=== PATIENT | male | born 1955 | race African-American/Black ===

== ENCOUNTER 2017-03-08 08:56 | Emergency (ER) | payer MEDICARE, MEDICAID ==
[~2017-03-08] VITALS: Ht 177.8 cm; Wt 120.0 kg
[~2017-03-08 08:56] MED LIST: ATOR10TA69 PO; DIGO125T82 PO; DILACOR XR PO; HYDR-523 PO; HYDR10SY11 PO; HYDR8TAB2 PO; METH-375 PO; MONT10TA21 PO; OMEP20TA15 PO; ONDA4SOL2 PO; QVAR INH; SEVE800T8 PO; TIOT18CA3 IH; TRAZ-129 PO; WARF5TAB76 PO
[2017-03-08 12:15] LABS: BASOPHILS % 0.4 % (0.0-2.0); EOSINOPHILS % 1.4 % (0.0-5.0); HEMATOCRIT. 35.2 % (42.0-52.0); HEMOGLOBIN. 11.4 g/dL (14.0-18.0); LYMPHOCYTES % 14.9 % (20.0-50.0); MEAN CORPUSCULAR HEMOGLOBIN 27.9 pg (28.0-32.0); MEAN CORPUSCULAR VOLUME 86.5 fL (80.0-94.0); MONOCYTES % 7.8 % (2.0-8.0); NEUTROPHILS % 75.5 % (40.0-76.0); PLATELET 206 x1000/uL (130-400); RED BLOOD CELL COUNT 4.07 mill/uL (4.7-6.1); RED CELL DISTRIBUTION WIDTH 18.1 % (11.6-14.6)
[2017-03-08 12:30] LABS: CHLORIDE 96 mEq/L (98-107)
[2017-03-08 19:40] VITALS: BP 123/65
== END 2017-03-08 21:09 | disposition home or self-care (01) ==
LOC: ER 08:56
DX: R55 Syncope and collapse (principal); I10 Essential (primary) hypertension; E11.9 Type 2 diabetes mellitus without complications; Z79.01 Long term (current) use of anticoagulants; Z88.0 Allergy status to penicillin; Z99.2 Dependence on renal dialysis
CPT/HCPCS: 36415; 70450; 71045; 80053; 82962; 84484; 85025; 93005; 99285